=== PATIENT | male | born 1995 | race Two or more races ===

== ENCOUNTER 2018-02-05 17:09 | Emergency (ER) | payer MEDICAID, OTHER ==
[~2018-02-05] VITALS: Ht 177.8 cm; Wt 68.9 kg
[~2018-02-05 17:09] MED LIST: ALBUTEROL2.5 MG/3 M INH; IBUPROFEN600 MG ORAL
--- NOTE | 2018-02-05 18:02 | Emergency Room Report ---
History of Present Illness General Chief Complaint: Lower Back Pain or Injury Source: Patient Present Illness HPI 22-year-old male presents emergency department complaining of acute onset 10 out of 10 in severity low back pain 1 week. Patient states that he was at the gym doing arm curls and after he put the weights down he felt sharp pain in his back. Patient states pain is worse when he is slightly bent forward Or sitting for long period of time. Patient denies previous injury to this area of his back. Patient states the pain does not radiate down his leg but it does radiate into the buttocks bilaterally. Denies numbness tingling or loss of sensation or gross motor movements of the extremities, incontinence of bowel or bladder. . Denies Hematuria, CP, Palpitations, LOC, AMS, dizziness, Changes in Vision, weakness or a sudden severe headache. Allergies: Coded Allergies: Shrimp (Verified Allergy, Intermediate, swollen lips, itch, 09/27/13) Patient History Past Medical History: see triage record Past Surgical History: none Pertinent Family History: none Immunizations: UTD Reviewed Nursing Documentation: PMH: Agreed; PSxH: Agreed Nursing Documentation-PMH Past Medical History: No History, Except For Hx Asthma: Yes Review of Systems All Other Systems: negative except mentioned in HPI Physical Exam Vital Signs Date Time Temp Pulse Resp B/P (MAP) Pulse Ox O2 Delivery O2 Flow Rate FiO2 02/05/18 17:15 98.2 82 18 122/5 96 Room Air 98.2 Sp02 EP Interpretation: reviewed, normal General Appearance: alert, GCS 15, non-toxic, moderate distress Head: normocephalic, atraumatic ENT: hearing grossly normal, normal voice Neck: full range of motion Respiratory: lungs clear, normal breath sounds, speaking full sentences Cardiovascular #1: regular rate, rhythm Genitourinary: normal inspection, no CVA tenderness Musculoskeletal: back normal, gait/station normal, normal range of motion, tender - * Mild Tenderness to palpation to paraspinal muscles of the Lumbar area and upper gluteal area bilaterally, with no obvious midline tenderness. Neurologic: alert, oriented x3, responsive, motor strength/tone normal, sensory intact, speech normal, grossly normal Psychiatric: judgement/insight normal Skin: normal color, no rash, warm/dry, well hydrated Medical Decision Making PA Attestation Dr. fitzpatrick is my supervising Physician whom patient management has been discussed with. Diagnostic Impression: Primary Impression: Lumbosacral pain Additional Impression: Lumbosacral strain Qualified Codes: S39.012A - Strain of muscle, fascia and tendon of lower back , initial encounter ER Course 22-year-old male presents emergency department complaining of acute onset 10 out of 10 in severity low back pain 1 week. Patient states that he was at the gym doing arm curls and after he put the weights down he felt sharp pain in his back. Patient states pain is worse when he is slightly bent forward Or sitting for long period of time. Patient denies previous injury to this area of his back. Patient states the pain does not radiate down his leg but it does radiate into the buttocks bilaterally. Denies numbness tingling or loss of sensation or gross motor movements of the extremities, incontinence of bowel or bladder. . Denies Hematuria, CP, Palpitations, LOC, AMS, dizziness, Changes in Vision, weakness or a sudden severe headache. Ddx considered: epidural abscess, fracture, sprain/strain, meningitis, spinal chord injury, sciatica, cauda equina, Pyelonephritis, renal calculi just to name a few. Vital signs reviewed and are WNL during ED visit. Pt. is afebrile with no signs of infection No new symptoms, and denies recent trauma. No saddle anesthesia noted, Pt. denies incontinence Neurovascular is intact ROM is limited due to pain * Mild Tenderness to palpation to paraspinal muscles of the Lumbar area and upper gluteal area bilaterally, with no obvious midline tenderness. *Pt. describes pain today as moderate and radiates across the lower back. ORDERS: none warranted at this time. INTERVENTIONS: - Soma PO -Lidoderm TP -I do not identify an emergent condition at this time. With current presentation , pt. is stable for close outpatient follow up and conservative treatment. D/ w pt. to return promptly to ED with worsening or new symptoms.- Pt. (and or responsible constitution party) verbalizes' understanding and agreement with proposed treatment plan.proposed treatment plan. DISCHARGE: At this time pt. is stable for d/c to home. Will provide printed patient care instructions, and any necessary prescriptions. Care plan and follow up instructions have been discussed with the patient prior to discharge. Last Vital Signs Date Time Temp Pulse Resp B/P (MAP) Pulse Ox O2 Delivery O2 Flow Rate FiO2 02/05/18 17:15 98.2 82 18 122/5 96 Room Air 98.2 Disposition: HOME, SELF-CARE Condition: Stable Scripts Albuterol Sulfate* (ALBUTEROL SULFATE MDI*) 8.5 Gm Hfa.aer.ad 2 PUFF INH Q4H, #1 INH 2 Refills Prov: Geraldine Pulido 02/05/18 Ibuprofen* (MOTRIN*) 600 Mg Tablet 600 MG ORAL THREE TIMES A DAY, #20 TAB 0 Refills Prov: Geraldine Pulido 02/05/18 Methocarbamol* (ROBAXIN*) 500 Mg Tablet 1000 MG PO TID, #42 TAB 0 Refills Prov: Geraldine Pulido 02/05/18 Lidocaine (Lidoderm) 1 Each Adh..patch 1 PATCH TOPIC DAILY, #20 PATCH 0 Refills Patch(es) may remain in place for up to 12 hours in any 24-hour period. Prov: Geraldine Pulido 02/05/18 Patient Instructions: Lumbosacral Strain, Back Pain, Adult Additional Instructions: Take medications as directed. Follow up with a Primary Care Provider in 3-5 days, even if your symptoms have resolved. --Please review list of primary care clinics, if you do not already have a primary care provider Return sooner to ED if new symptoms occur, or current symptoms become worse. Do not drink alcohol, drive, or operate heavy machinery while taking Robaxin as this may cause drowsiness. - Please note that this Emergency Department Report was dictated using [employer] supervisor technology software, occasionally this can lead to erroneous entry secondary to interpretation by the dictation equipment. Geraldine Pulido Feb 05, 2018 18:02
[2018-02-05] MEDS ORDERED: IBUPROFEN600 MG ORAL (18:04)
[2018-02-05] MEDS ORDERED: LIDODERM700 M1 TOPIC (18:04)
[2018-02-05] MEDS ORDERED: ROBAXIN500 MG PO (18:04)
[2018-02-05 18:45] VITALS: BP 108/69
[2018-02-05] MEDS ORDERED: ALBUTEROL SULF8.5 GM INH (18:55)
== END 2018-02-05 18:45 | disposition home or self-care (01) ==
LOC: EMR 18:35
DX: S39.012A Strain of muscle, fascia and tendon of lower back, initial encounter (principal); X50.0XXA Overexertion from strenuous movement or load, initial encounter; Y92.39 Other specified sports and athletic area as the place of occurrence of the external cause; J45.909 Unspecified asthma, uncomplicated; Z91.013 Allergy to seafood
CPT/HCPCS: 99284

== ENCOUNTER 2019-09-08 18:19 | Emergency (ER) | payer OTHER ==
[~2019-09-08] VITALS: Ht 177.8 cm; Wt 73.0 kg
[~2019-09-08 18:19] MED LIST changes: +ALBUTEROL SULF8.5 GM INH; +LIDODERM700 M1 TOPIC; +ROBAXIN500 MG PO
--- NOTE | 2019-09-08 18:28 | NUR ---
ED Nurse Note:. Pt ambulated to ed with mother c/o difficulty breathing x 15 min ago. pt has hx of asthma. states inhaler is not working
[2019-09-08 18:29] VITALS: BP 129/74
[2019-09-08] MEDS ORDERED: Dexamethasone 4mg/ml vial IVP ONE (18:30)
[2019-09-08] MEDS: Albuterol/Ipratropium 3ml neb HHN SCH ×3 (18:45→19:00)
--- NOTE | 2019-09-08 18:51 | NUR ---
ED Nurse Note: RT at bedside
[2019-09-08 19:10] LABS: BASOPHILS % (AUTO) 0.6 % (0.0-2.0); HEMOGLOBIN 16.6 G/DL (14.2-18.0); LYMPHOCYTES % (AUTO) 10.4 % (20.0-45.0); MEAN CORPUSCULAR VOLUME 89 FL (80-99); MONOCYTES % (AUTO) 4.2 % (1.0-10.0); NEUTROPHILS % (AUTO) 84.8 % (45.0-75.0); PLATELET COUNT 186 K/UL (150-450); RED BLOOD COUNT 5.76 M/UL (4.70-6.10); RED CELL DISTRIBUTION WIDTH 12.2 % (11.6-14.8); WHITE BLOOD COUNT 5.9 K/UL (4.8-10.8)
--- NOTE | 2019-09-08 19:18 | NUR ---
ED Nurse Note: PT AMBULATED TO RESTROOM AND OBTAINED URINE SPECIMEN.
--- NOTE | 2019-09-08 19:23 | NUR ---
ED Nurse Note: HAND OFF GIVEN TO KAMAR CHADWICK
[2019-09-08 19:24] LABS: ANION GAP 15 mmol/L (5-15); BLOOD UREA NITROGEN 13 mg/dL (7-18); CARBON DIOXIDE 23 MMOL/L (21-32); CHLORIDE 106 MMOL/L (98-107); CREATININE 1.2 MG/DL (0.55-1.30); POTASSIUM 3.9 MMOL/L (3.5-5.1); SODIUM 144 MMOL/L (136-145)
[2019-09-08 19:29] LABS: ALANINE AMINOTRANSFERASE 26 U/L (12-78); ALBUMIN 4.6 G/DL (3.4-5.0); ALKALINE PHOSPHATASE 125 U/L (46-116); ASPARTATE AMINO TRANSFERASE 10 U/L (15-37); BILIRUBIN,TOTAL 0.4 MG/DL (0.2-1.0)
[2019-09-08 19:39] LABS: APPEARANCE,URINE CLEAR; BILIRUBIN, URINE NEGATIVE (NEGATIVE); GLUCOSE, URINE (UA) 2+ (NEGATIVE); KETONES,URINE 1+ (NEGATIVE); LEUKOCYTE ESTERASE ,URINE NEGATIVE (NEGATIVE); NITRITE,URINE NEGATIVE (NEGATIVE); PH,URINE 6 (4.5-8.0); PROTEIN,URINE 1+ (NEGATIVE); UROBILINOGEN,URINE 1 MG/DL (0.0-1.0)
[2019-09-08 19:41] LABS: COLOR,URINE YELLOW
--- NOTE | 2019-09-08 20:02 | Emergency Room Report ---
History of Present Illness General Chief Complaint: Asthma Source: Patient Present Illness HPI 23-year-old male with history of asthma here complaining of asthma exacerbation. Patient reports that for the past 2 days he has been wheezing excessively, cough, denies congestion fever and chills. Denies recent travel. Denies abdominal pain, nausea vomiting. Diffuse wheezing noted. Patient appears to be tachycardic upon arrival. Denies any drug use, tobacco smoke. Denies chest pain, chest pain radiation, weakness. Has not taken medication for symptom relief other than his albuterol inhaler. Allergies: Coded Allergies: Shrimp (Verified Allergy, Intermediate, swollen lips, itch, 09/27/13) Patient History Past Medical History: see triage record Past Surgical History: none Pertinent Family History: none Immunizations: UTD Reviewed Nursing Documentation: PMH: Agreed; PSxH: Agreed Nursing Documentation-PMH Past Medical History: No History, Except For Hx Asthma: Yes Review of Systems All Other Systems: negative except mentioned in HPI Physical Exam Vital Signs Date Time Temp Pulse Resp B/P (MAP) Pulse Ox O2 Delivery O2 Flow Rate FiO2 09/08/19 18:29 88 24 09/08/19 18:29 98.1 129/74 92 Room Air 09/08/19 18:48 21 Sp02 EP Interpretation: reviewed, normal General Appearance: no apparent distress, alert, GCS 15, non-toxic Head: normocephalic, atraumatic Eyes: bilateral eye normal inspection, bilateral eye PERRL ENT: hearing grossly normal, normal pharynx, no angioedema, normal voice Neck: full range of motion, supple, supple/symm/no masses Respiratory: no rhonchi, no respiratory distress, no retraction, no accessory muscle use, wheezing - Diffuse wheezing Cardiovascular #1: regular rate, rhythm, no edema, no gallop, no murmur Gastrointestinal: normal bowel sounds, non tender, soft, non-distended, no guarding, no rebound Rectal: deferred Genitourinary: no CVA tenderness Musculoskeletal: back normal, no calf tenderness Neurologic: alert, motor strength/tone normal, oriented x3, sensory intact, responsive, speech normal Psychiatric: judgement/insight normal, memory normal, mood/affect normal, no suicidal/homicidal ideation Skin: no rash Lymphatic: no adenopathy Medical Decision Making PA Attestation All my diagnosis and treatment plans were reviewed ad discussed with my supervising physician Dr. Marinelli Diagnostic Impression: Primary Impression: Asthma exacerbation ER Course 23-year-old male with history of asthma here complaining of asthma exacerbation. Patient reports that for the past 2 days he has been wheezing excessively, cough, denies congestion fever and chills. Denies recent travel. Denies abdominal pain, nausea vomiting. Diffuse wheezing noted. Patient appears to be tachycardic upon arrival. Denies any drug use, tobacco smoke. Denies chest pain, chest pain radiation, weakness. Has not taken medication for symptom relief other than his albuterol inhaler. Ddx considered but are not limited to: bronchitis, PNA, URI viral, bacterial bronchitis, asthma exacerbation Vital signs: are WNL, pt. is afebrile H&PE are most consistent with: Asthma exacerbation ORDERS: Chest x-ray, CBC, CMP, UA, tox screen, albuterol, prednisone, guaifenesin ED INTERVENTIONS: Dexamethasone, 3 treatments of albuterol ipratropium nebulizer treatment DISCHARGE: At this time pt. is stable for d/c to home. Will provide printed patient care instructions, and any necessary prescriptions. Care plan and follow up instructions have been discussed with the patient prior to discharge. Take medication as directed, follow-up with primary care provider for reassessment of asthma, if worsening symptoms return emergency room, avoid using marijuana. Patient tachycardia resolved after giving fluids as well as breathing treatment however advised to follow-up with tobacco farmworker return to emergency room if increased heart rate. EKG Diagnostic Results Rate: tachycardiac Rhythm: other - sinus tachy ST Segments: no acute changes Other Impression No acute ST changes Chest X-Ray Diagnostic Results Chest X-Ray Diagnostic Results : Chest X-Ray Ordered: Yes # of Views/Limited/Complete: 1 View Indication: Shortness of Breath EP Interpretation: Yes PA Xray: Interpretation reviewed, by supervising MD, and agrees with findings. Interpretation: no consolidation, no effusion, no pneumothorax Impression: No acute disease Electronically Signed by: Gracie Mackenzie PA-C Last Vital Signs Date Time Temp Pulse Resp B/P (MAP) Pulse Ox O2 Delivery O2 Flow Rate FiO2 09/08/19 19:31 117 22 98 Room Air 21 113 20 96 09/08/19 18:31 97.9 153/76 (101) Status: improved Disposition: HOME, SELF-CARE Condition: Stable Scripts Guaifenesin* (GUAIFENESIN*) 100 Mg/5 Ml Liquid 5 ML ORAL Q6H, #120 ML 0 Refills Prov: Gracie Fox 09/08/19 Prednisone* (PREDNISONE*) 20 Mg Tablet 40 MG ORAL DAILY for 5 Days, #10 TAB Prov: Gracie Fox 09/08/19 Albuterol Sulfate (VENTOLIN HFA) 18 Gm Hfa.aer.ad 2 PUFFS INH EVERY 6 HOURS, #18 GM 0 Refills Prov: Gracie Fox 09/08/19 Referrals: [facility],REFERRING (PCP) Patient Instructions: Asthma, Adult Additional Instructions: Take medication as directed, follow-up with your primary care provider, avoid using marijuana, follow-up with your primary care provider, if worsening symptoms return to the emergency room Gracie Fox Sep 08, 2019 20:02
[2019-09-08] MEDS ORDERED: VENTOLIN HFA18 GM INH (20:04)
[2019-09-08] MEDS ORDERED: GUAIFENESI100 MG/5 M ORAL (20:04)
[2019-09-08] MEDS ORDERED: PREDNISONE20 MG ORAL (20:04)
[2019-09-08 20:12] VITALS: BP 144/78
--- NOTE | 2019-09-08 20:12 | NUR ---
ED Nurse Note: All orders completed per ERMD orders. Pt cleared by health care Provider for discharge. DC instructions/prescription was given and explained to pt and verbalized understanding of teachings. Instructed pt to follow up with primary care physican within one week for further care. All medical devices such as ID band and IV removed. Pt is AAO x4, VSS, RA, no signs of resp distress. Pt ambulatory and left with all personal belongings.
--- NOTE | 2019-09-09 11:50 | Diagnostic Imaging Report ---
Indication: Chest pain Technique: One view of the chest Comparison: none Findings: Lungs and pleural spaces are clear. Heart size is normal. Impression: No acute process
== END 2019-09-08 20:12 | disposition home or self-care (01) ==
LOC: EMR 18:35
DX: J45.901 Unspecified asthma with (acute) exacerbation (principal); Z91.013 Allergy to seafood; R00.0 Tachycardia, unspecified
CPT/HCPCS: 36415; 71045; 80053; 80307; 81003; 84484; 85025; 93005; 96361; 96374; J1100; J7030; Z7502; 99284; J7620